=== PATIENT | male | born 1980 | race Caucasian/White ===

== ENCOUNTER 2019-06-20 08:45 | Observation (INO) ==
[2019-06-20] MEDS ORDERED: NS 1,000 ML IV ONE ×3 (08:58→13:43)
--- NOTE | 2019-06-20 09:08 | PROVIDER DOCUMENTATION ---
HPI-General Adult - General Chief Complaint: DKA ALERT Stated Complaint: DKA Time Seen by Provider: 06/20/19 08:58 Source: patient Allergies/Adverse Reactions: Patient Allergies Allergy/AdvReac Type Severity Reaction Status Date / Time No Known Allergies Allergy Verified 06/20/19 09:30 - History of Present Illness -Gen Adult Nature of Presenting Problems: Pt. is 39 yom that presents with c/o elevated blood sugar and reports he has vomited twice this morning. Pt. states he has had increased thirst and urination. He reports his meter reads Hi and he is concerned about DKA. He denies any other concerns Location of Pain/Injury: reports: none. denies: head, face, mouth, neck, chest, upper extremity, hand(s), abdomen, back, pelvis, genitalia, lower extremity, feet, upper body, lower body, generalized, other Pain Radiation: reports: no radiation. denies: arm(s), back, buttocks, chest, epigastric, feet, groin, jaw, flank (L), legs (lower), LLQ, LUQ, neck, periumbilical, flank (R), RLQ, RUQ, shoulder(s), scapula, scrotal, sternal notch, suprapubic, legs (upper), urethral, vaginal, other Quality of Pain: reports: none. denies: aching, pressure, tightness Severity: reports: moderate. denies: mild, severe Onset/Duration: reports: abrupt, this morning Timing: reports: still present. denies: improving, intermittent, getting worse Context/Activities at Onset: reports: none. denies: light activity, moderate activity, vigorous activity, recent emotional stress, recent physical stress, recent trauma history, possible bad food, cold exposure, eating, out of country travel, rest, sleep, sexual activity, other Modifying Factors: improves with: nothing Associated Symptoms: reports: nausea, vomiting. denies: denies symptoms, anxiety, arm pain, back/neck pain, chest pain, constipation, cough, diaphoresis, diarrhea, dizziness, EENT symptoms, fatigue, fever/chills, genitourinary problems, headaches, heartburn, joint pain, loss of appetite, malaise, muscle aches, sinus congestion/drainage, rash, seizure, shortness of breath, sensory/motor loss, pain with inspiration, swelling/mass in abdomen, syncope, weakness, trouble walking, other Similar Symptoms Previously?: No Recently seen or treated by another doctor?: No - Diabetes Related Context Context: reports: high blood sugar, prior DKA hospitalization. denies: low blood sugar, change in mental status, unresponsive Review of Systems - Adult - REVIEW OF SYSTEMS - ADULT Constitutional: reports: no symptoms reported Eyes: reports: no symptoms reported Ears, Nose, Mouth & Throat: reports: no symptoms reported Cardiovascular: reports: no symptoms reported Respiratory: reports: no symptoms reported Gastrointestinal: reports: see HPI, nausea, vomiting. denies: hematemesis, diarrhea, difficulty swallowing Genitourinary: reports: no symptoms reported Musculoskeletal: reports: no symptoms reported Integumentary: reports: no symptoms reported Neurological: reports: no symptoms reported Psychiatric: reports: no symptoms reported Endocrine: reports: see HPI, increased thirst, polyuria. denies: change in skin pigment, cold intolerance, heat intolerance Past History - Adult - PAST MEDICAL HISTORY-ADULT Review of Records: reports: Old Records Reviewed, Nursing Assessment Review, Medications Reviewed, Social history reviewed & non-contributory. - IMMUNIZATION STATUS Childhood Immunizations: See Nurse Assessment Flu Vaccine: See Nurse Assessment - FAMILY HISTORY Family History: reviewed, not pertinent - SOCIAL HISTORY Smoking: non-smoker Physical Exam-General - PHYSICAL EXAM-ADULT Initial Vital Signs Reviewed: Yes - CONSTITUTIONAL General Appearance: alert, mild distress, thin. negative: anxious, slow to respond, obtunded, combative - EYES Eyes: PERRL/EOMI, pink conjunctivae - HEAD, EARS, NOSE, MOUTH & THROAT HENMT: normocephalic/atraumatic, moist mucous membranes - NECK Neck: non-tender, full range of motion, supple, normal inspection - RESPIRATORY Respiratory: lungs clear, normal breath sounds - CARDIOVASCULAR Cardiovascular: regular rate, rhythm, no edema, tachycardia. negative: extra beats, friction rub, irregularly irregular - GASTROINTESTINAL (ABDOMEN) Abdominal Exam: normal bowel sounds, non tender, soft - LYMPHATIC Lymphatic: no adenopathy - MUSCULOSKELETAL Back Exam: normal inspection, no CVA tenderness, no vertebral tenderness Extremity: normal range of motion, non-tender, normal gait, normal inspection Peripheral Pulses: radial (R): 2+, radial (L): 2+ - SKIN Integumentary: normal color, normal turgor, warm/dry. negative: cyanosis, mottled, warm - NEUROLOGIC Neurologic: grossly normal, no motor/sensory deficits - PSYCHIATRIC Psych/Mental Status: normal mood/affect, normal thought content, normal thought process, oriented x 3. negative: anxious, paranoid, tearful Progress - PLAN OF CARE/RESULTS Progress/Plan/Lab Results: Vital Signs - 8 hr 06/20/19 08:48 Temperature 97.6 F Pulse Rate 122 H Respiratory Rate 16 Blood Pressure 133/81 O2 Sat by Pulse Oximetry 99 Orders Category Date Time Status Cardiac Monitoring DIRECTED Care 06/20/19 08:58 Active FSBS/Accucheck Result Q1H Care 06/20/19 08:58 Active Saline Loc NOW Care 06/20/19 08:58 Active Vital Signs Order Q1H Care 06/20/19 08:58 Active ABG [RESP] Routine Lab 06/20/19 08:58 Ordered ACETONE SERUM [CHEM] Stat Lab 06/20/19 09:07 Ordered CBC WITH NO DIFF [HEME] Stat Lab 06/20/19 09:07 Ordered CK PROFILE [SP CHEM] Stat Lab 06/20/19 09:07 Ordered COMPREHENSIVE METABOLIC PANEL [CHEM] Stat Lab 06/20/19 09:07 Ordered LACTATE, PLASMA [CHEM] Stat Lab 06/20/19 09:07 Ordered MAGNESIUM [CHEM] Stat Lab 06/20/19 09:07 Ordered PHOSPHORUS [CHEM] Stat Lab 06/20/19 09:07 Ordered URINALYSIS [URINALYSIS] Stat Lab 06/20/19 09:07 Ordered 0.9% Sodium Chloride Inj [Ns] 1,000 ml Med 06/20/19 08:58 Active IV 999 mls/hr Result Diagrams: 06/20/19 09:05 06/20/19 09:05 - EKG 1 Time of EKG reading by physician:: 09:06 EKG Read and Signed by:: Joel Roa EKG Interpretation (*Must complete 3 of following elements*): Abnormal Rate: 113 Rhythm: [facility] [place]: normal QRS: normal SC Interval: normal ST Wave: normal - CONSULTS/PCP/HOSPITALIST Notification #1 *Consult/PCP/Hospitalist*: Meghna for the hospitilist Time Discussed: 09:46 Reason/Comments: Admission Consult Disposition: Will see in ED, Admit Departure - Departure Date of Disposition Decision: 06/20/19 Time of Disposition Decision: 09:37 DIAGNOSIS: Dehydration, Nausea and vomiting due to hyperglycemia DKA (diabetic ketoacidoses) Qualifiers: Diabetes mellitus type: type 1 Diabetes mellitus complication detail: without coma Qualified Code(s): E10.10 - Type 1 diabetes mellitus with ketoacidosis without coma Leukocytosis Qualifiers: Leukocytosis type: unspecified Qualified Code(s): D72.829 - Elevated white blood cell count, unspecified Disposition: ADMITTED INPATIENT 09 Certified Medical Emergency: Emergent Condition: Stable Referrals and Follow-Ups: None,PCP [Primary Care Provider] - - Critical Care Note This patient required my direct & personal management of CC.: Yes Total Time (mins): 37 Critical Care Statement: This patient required my direct personal management to treat or rule out processes, the absence of which, could potentiallly result in sudden, clinically significant life or limb threatening deterioration. Attestation - Physician/ TA Attestation Patient care was provided by Advanced Practice Provider:: Yes Advanced Practice Provider:: Bebeto Spain Advanced Practice Provider documentation review:: The Mid-level provider documentation, treatment plan and medical decision making was reviewed by the physician who agrees with all treatment and medical decision making by the P. The physician spent face to face time with patient:: No Advanced Practice Provider documentation review:: Supervising physician onsite and consulted in the evaluation and care of this patient. The physician did not have a face to face encounter with the patient.
[2019-06-20 09:14] LABS: URINE SOURCE CLEAN CATCH
[2019-06-20 09:17] LABS: HEMATOCRIT 51.3 % (42.0-52.0); HEMOGLOBIN 16.9 g/dL (14.0-18.0); MCH 29.7 PG (27-31); MCHC 32.9 g/dL (33-37); MCV 90.2 FL (81-99); MPV 9.3 FL (7.4-10.4); RBC 5.69 XMIL (4.7-6.1); RDW 12.3 % (11.5-14.5); WBC 15.98 X1000 (4.8-10.8)
[2019-06-20 09:28] LABS: ACETONE SERUM SMALL (NEGATIVE); BILIRUBIN URINE NEGATIVE (NEGATIVE); BLOOD URINE NEGATIVE (NEGATIVE); COLOR STRAW; GLUCOSE URINE >1000 mg/dL (NEGATIVE); KETONE URINE >150 mg/dL (NEGATIVE); LEUKOCYTES URINE NEGATIVE (NEGATIVE); NITRITE URINE NEGATIVE (NEGATIVE); PH URINE 5.5; PROTEIN URINE NEGATIVE (NEGATIVE); SP GRAVITY URINE 1.024; TURBIDITY URINE CLEAR (CLEAR); UROBILINOGEN URINE NORMAL (NORMAL)
[2019-06-20 09:29] LABS: UR EPITHELIAL CELLS <10 /HPF (<10); URINE BACTERIA NEGATIVE /HPF; URINE RBC <10 /HPF (<10); URINE WBC <10 /HPF (<10)
--- NOTE | 2019-06-20 09:29 | EKG Report ---
Test Performed on : 06/20/2019 09:06:18 AM Test Reason : dka Blood Pressure : / mmHG Vent. Rate : 113 BPM Atrial Rate : 113 BPM P-R Int : 130 ms QRS Dur : 090 ms QT Int : 328 ms P-R-T Axes : 066 043 048 degrees QTc Int : 449 ms Sinus tachycardia. Possible Left atrial enlargement Borderline ECG No previous ECGs available Unconfirmed Result
[2019-06-20 09:34] LABS: ALLEN TEST YES; BE -17.2 mmoll (-3.0-3.0); BLOOD TYPE ARTERIAL; HCO3-(ACT) 11.4 mmoll (20.0-26.0); METHB 0.6 % (0.0-1.5); O2(CT) 23.2 mL/dL (15.0-23.0); O2HB 95.7 % (95.0-99.0); PCO2(98.6) 22 mmHg (35-45); PO2(98.6) 94 mmHg (60-100); SAMPLE BLOOD; SAO2 97.7 % (95.0-100.0); THB 17.2 g/dL (11.5-17.4)
[2019-06-20 09:35] LABS: MODALITY ROOM AIR
[2019-06-20 09:36] LABS: UR AMPHETAMINES QUAL NONE DETECTED (NONE DETECT); UR BARBITUATES QUAL NONE DETECTED (NONE DETECT); UR BENZODIAZEPIN QUAL NONE DETECTED (NONE DETECT); UR CANNABINOIDS QUAL NONE DETECTED (NONE DETECT); UR COCAINE QUAL NONE DETECTED (NONE DETECT); UR METHADONE QUAL NONE DETECTED (NONE DETECT); UR OPIATES QUAL NONE DETECTED (NONE DETECT); UR OXYCODONE QUAL NONE DETECTED (NONE DETECT); UR PCP QUAL NONE DETECTED (NONE DETECT)
[2019-06-20] MEDS ORDERED: HUMULIN R IV ONE (09:36)
[2019-06-20 09:41] LABS: AGAP 34; ALB/GLOB RATIO 1.8; ALBUMIN 5.6 g/dL (3.5-5.0); ALKALINE PHOSPHATASE 190 U/L (32-122); BUN 25 mg/dL (8-22); CALCIUM 9.5 mg/dL (8.8-10.2); CHLORIDE 86 mmol/L (98-107); CK PROFILE 53 U/L (24-204); COSMO 294; CREATININE 1.2 mg/dL (0.7-1.2); ESTIMATED GFR > 60; GOT 25 U/L (10-34); GPT 27 U/L (10-44); POTASSIUM 4.4 mmol/L (3.5-5.1); SODIUM 133 mmol/L (136-145); TCO2 13 mmol/L (25-35); TOTAL BILIRUBIN 1.56 mg/dL (0.20-1.00); TOTAL PROTEIN 8.8 g/dL (6.3-8.3)
[2019-06-20 09:43] LABS: GLUCOSE 513 mg/dL (70-104)
[2019-06-20] MEDS ORDERED: HUMULIN R 100 UNIT in NS 100 ML IV SCH ×3 (09:45→16:45)
--- NOTE | 2019-06-20 10:04 | Diag Imaging Result Doc PS360 ---
EXAM: CHEST-PORTABLE 06/20/2019 HISTORY: elevated wbc and lactate TECHNIQUE: AP portable upright at 0957 COMMENT: There is no evidence of acute cardiac or pulmonary disease. There are no previous studies. IMPRESSION: No acute disease. Electronically signed by Leonardo Jacques 06/20/2019 10:01 AM
[2019-06-20] MEDS ORDERED: D50W SYRINGE IV PRN (10:23)
[2019-06-20] MEDS ORDERED: DERMABOND TOP ONE (10:45)
[2019-06-20] MEDS ORDERED: BOOSTRIX VACCINE IM ONE (10:45)
[2019-06-20] MEDS ORDERED: ZOFRAN IV PRN (11:25)
--- NOTE | 2019-06-20 11:55 | HISTORY AND PHYSICAL ---
CHIEF COMPLAINT: High blood sugar and vomiting. HISTORY OF PRESENT ILLNESS: This is a 39-year-old gentleman with a history of diabetes mellitus type 1, testicular cancer, and hyperlipidemia. He presented to the emergency room having blood sugars that were greater than 500 along with vomiting and nausea. Prior to coming to the emergency room, he realized that his insulin pod had deaccessed. He is unsure when, and unsure how long he has been without insulin. He did take 20 units of NovoLog about an hour prior to coming to the emergency room. On arrival, he was tachycardic with heart rates in the 120s to 130s. His initial blood sugar was 513. He was found to be in DKA, and is being admitted for such. PAST MEDICAL HISTORY: 1. Diabetes mellitus type 1. 2. Testicular cancer. 3. Hyperlipidemia. PAST SURGICAL HISTORY: Right testicle removed with a port placement and removal. SOCIAL HISTORY: He drinks alcohol occasionally. He denies any tobacco or illicit drug use. ALLERGIES: No known drug allergies. HOME MEDICATIONS: Insulin via pod. FAMILY HISTORY: Positive for hypertension and diabetes mellitus in first degree relatives. PHYSICAL EXAMINATION: GENERAL: This is a 39-year-old gentleman who is sitting up on the stretcher in the emergency room in no distress. VITAL SIGNS: Blood pressure 118/79 with a heart rate of 118, respirations 18, temperature is 97.6 degrees oral with room air saturations 99%. HEENT: Head is normocephalic, atraumatic. Mucous membranes moist. NECK: Supple with trachea midline. CARDIOVASCULAR: Regular rate and rhythm. Tachycardic. S1 and S2 appreciated. He has no lower extremity edema. Calves are nontender bilateral with peripheral pulses palpable x4 extremities. PULMONARY: Breath sounds are clear. No increased work of breathing noted. Chest rise falls and symmetric respiration. GASTROINTESTINAL: Abdomen is soft, nontender, and nondistended with bowel sounds in all 4 quadrants. : No CVA or suprapubic tenderness. SKIN: Warm and dry. He does have a laceration noted to his left first finger that he states he sustained last night while carving. Bleeding is controlled. LABORATORY: WBC is 15.9 with hemoglobin 16.9, hematocrit 51.3, and platelets of 328,000. Sodium 133, potassium 4.4, BUN 25, creatinine 1.2 with a glucose of 513. Urinalysis is positive for greater than 1000 glucose and ketones. He is acetone positive. ABGs with pH is 7.2 with pCO2 22, PO2 94, and bicarb of 11.4. ASSESSMENT AND PLAN: 1. Diabetic ketoacidosis. 2. Hyponatremia. 3. Laceration to left 1st finger approximately 1.5 cm, status post Dermabond in the emergency room with tetanus shot given in the emergency room. PLAN: The patient has received 1 L of IV hydration. We will give 2 more L bolus. We will manage fluids and electrolytes per DKA protocol. We will identify his home medications, and continue as appropriate. Give Zofran for nausea. Plan was discussed with Dr. Talbot. Further treatments pending hospital course. Dictated by LANI Bustamante for Sheila Talbot MD cc: LANI Bustamante MD
[2019-06-20] MEDS ORDERED: D5 NS 1,000 ML IV ONE (13:49)
[2019-06-20 15:09] LABS: AGAP 22; BUN 19 mg/dL (8-22); CALCIUM 8.3 mg/dL (8.8-10.2); CHLORIDE 103 mmol/L (98-107); COSMO 288; ESTIMATED GFR > 60; GLUCOSE 206 mg/dL (70-104); MAGNESIUM 1.8 mg/dL (1.5-2.7); PHOSPHORUS 2.2 mg/dL (2.7-4.5); POTASSIUM 4.7 mmol/L (3.5-5.1); SODIUM 140 mmol/L (136-145); TCO2 15 mmol/L (25-35)
[2019-06-20] MEDS ORDERED: MAGNESIUM SULFATE 2 GM/S.W.I. 2 GM/50 ML IVPB IV PRN (16:42)
[2019-06-20] MEDS ORDERED: SODIUM PHOSPHATE 30 MMOL in D5W 250 ML IV PRN (16:42)
[2019-06-20] MEDS ORDERED: SODIUM BICARBONATE 8.4% 100 MEQ in STERILE WATER INJ. 500 ML IV PRN (16:42)
[2019-06-20] MEDS ORDERED: POTASSIUM CHLORIDE 20% LIQUID PO PRN (16:42)
[2019-06-20] MEDS: POTASSIUM CHLORIDE 10% LIQUID PO PRN ×2 (17:21→21:40)
[2019-06-20 20:41] LABS: AGAP 16; BUN 17 mg/dL (8-22); CALCIUM 7.6 mg/dL (8.8-10.2); CHLORIDE 103 mmol/L (98-107); COSMO 286; CREATININE 0.9 mg/dL (0.7-1.2); ESTIMATED GFR > 60; GLUCOSE 293 mg/dL (70-104); MAGNESIUM 1.7 mg/dL (1.5-2.7); PHOSPHORUS 1.5 mg/dL (2.7-4.5); POTASSIUM 4.2 mmol/L (3.5-5.1); SODIUM 137 mmol/L (136-145); TCO2 18 mmol/L (25-35)
[2019-06-20] MEDS ORDERED: RESTORIL PO ONE (22:10)
[2019-06-20] MEDS ORDERED: D5 1/2 NS 1,000 ML IV SCH (22:30)
[2019-06-21] MEDS: POTASSIUM CHLORIDE 10% LIQUID PO PRN ×2 (01:13→04:32)
[2019-06-21] MEDS: PRILOSEC PO SCH ×2 (05:24→06:03)
[2019-06-21 06:01] LABS: ALLEN TEST YES; BE -3.1 mmoll (-3.0-3.0); BLOOD TYPE ARTERIAL; HCO3-(ACT) 22.5 mmoll (20.0-26.0); METHB 0.8 % (0.0-1.5); O2(CT) 18.9 mL/dL (15.0-23.0); O2HB 96.2 % (95.0-99.0); PCO2(98.6) 35 mmHg (35-45); PO2(98.6) 91 mmHg (60-100); SAMPLE BLOOD; SAO2 99.1 % (95.0-100.0); THB 13.9 g/dL (11.5-17.4); pH(98.6) 7.39 (7.35-7.45)
[2019-06-21 06:02] LABS: MODALITY ROOM AIR
[2019-06-21 06:29] LABS: HEMATOCRIT 39.1 % (42.0-52.0); HEMOGLOBIN 13.2 g/dL (14.0-18.0); MCH 30.1 PG (27-31); MCHC 33.8 g/dL (33-37); MCV 89.3 FL (81-99); MPV 8.9 FL (7.4-10.4); RBC 4.38 XMIL (4.7-6.1); WBC 8.23 X1000 (4.8-10.8)
[2019-06-21 06:49] LABS: AGAP 14; ALBUMIN 3.8 g/dL (3.5-5.0); BUN 11 mg/dL (8-22); CALCIUM 7.2 mg/dL (8.8-10.2); CHLORIDE 102 mmol/L (98-107); COSMO 275; CREATININE 0.7 mg/dL (0.7-1.2); ESTIMATED GFR > 60; GLUCOSE 229 mg/dL (70-104); MAGNESIUM 2.2 mg/dL (1.5-2.7); PHOSPHORUS 1.4 mg/dL (2.7-4.5); POTASSIUM 4.2 mmol/L (3.5-5.1); SODIUM 134 mmol/L (136-145); TCO2 18 mmol/L (25-35)
[2019-06-21] MEDS ORDERED: SODIUM PHOSPHATE 40 MMOL in NS 250 ML IV ONE (07:48)
[2019-06-21] MEDS ORDERED: CRESTOR PO SCH (09:00)
[2019-06-21] MEDS ORDERED: HUMULIN R SUBQ SCH (11:00)
[2019-06-21] MEDS ORDERED: LEVEMIR SUBQ ONE ×2 (13:36)
[2019-06-21] MEDS: HUMULIN R SUBQ SCH ×2 (14:06→17:12)
[2019-06-21 15:16] LABS: AGAP 14; ALBUMIN 4.2 g/dL (3.5-5.0); BUN 12 mg/dL (8-22); CALCIUM 7.6 mg/dL (8.8-10.2); CHLORIDE 94 mmol/L (98-107); COSMO 270; CREATININE 0.8 mg/dL (0.7-1.2); ESTIMATED GFR > 60; GLUCOSE 341 mg/dL (70-104); PHOSPHORUS 3.6 mg/dL (2.7-4.5); POTASSIUM 4.3 mmol/L (3.5-5.1); SODIUM 128 mmol/L (136-145); TCO2 20 mmol/L (25-35)
[2019-06-21] MEDS ORDERED: NS 1,000 ML IV SCH (15:45)
[2019-06-21 16:06] VITALS: BP 123/80
--- NOTE | 2019-06-22 22:51 | DISCHARGE SUMMARY ---
ADMISSION DATE: 06/20/2019 DISCHARGE DATE: 06/21/2019 FINAL DISCHARGE DIAGNOSIS: Diabetic ketoacidosis. HOSPITAL COURSE: Mr. Thomas is a 39-year-old male with a history of type 1 diabetes and history of testicular cancer who presented to the ER with a chief complaint of nausea, vomiting, and abdominal pain. Upon arrival to the ER, the patient was noted to have blood sugars greater than 500 with an anion gap of 34. The patient was admitted to the hospitalist service and transferred to [facility], and started on aggressive IV fluid hydration and the diabetic ketoacidosis protocol. The patient's anion gap closed and the patient was transitioned to subcutaneous insulin. The patient was able to tolerate his diet without any difficulty. The patient states that he uses an insulin pump and he does have an appointment with his field service poultry technician on 06/22/2019. The patient is currently stable for discharge home. DISCHARGE MEDICATIONS: 1. NovoLog via insulin pump. 2. Crestor 20 mg oral daily. DISCHARGE DIET: Diabetic diet. ACTIVITY: As tolerated. FOLLOWUP INSTRUCTIONS: The patient has been advised to follow up with his field service poultry technician in [place] as scheduled, on 06/22/2019. cc: Sheila Talbot MD
== END 2019-06-21 18:01 | disposition home or self-care (01) ==
LOC: ED 08:45 → 2N 08:46 → INTOOBSV 08:46
PROVIDERS: ATTEND Internal Medicine